=== PATIENT | female | born 1980 | race Caucasian/White ===

== ENCOUNTER → 2016-12-11 | Day surgery (SDC) | payer BC ==
[~2016-12-11] MED LIST: ALBU8I INH; DOCQ100C2 PO; DULO20 PO; FERR140T PO; LACTATED RINGER'S 1,000 ML BAG IV ONE; LAMO150 PO; ONABOTULINUMTOXINA INJ 100 UNITS/VIAL ONE; PROPOFOL 200 MG/20 ML AMP IV ONE; SODIUM CHLORIDE 0.9% INJ 10 ML ONE; SYNT75TA PO; TRAZ50TA4 PO
--- NOTE | 2016-12-11 10:12 | GIPROC ---
[facility] [address] [facility], [id number] EGD PROCEDURE REPORT EXAM DATE: 12/11/2016 PATIENT NAME: Ani Olvera MR #: [id number] BIRTHDATE: 1980 ATTENDING: Robles Mancia MD ORDER #: [id number] LIBRARY AIDE: Gerda Rossi RN STATUS: outpatient INDICATIONS: The patient is a 36 yr old female here for an EGD due to gastroparesis PROCEDURE PERFORMED: EGD w/ directed submucosal injection(s), any substance MEDICATIONS: None, Per Anesthesia, None, and Per Anesthesia. TOPICAL ANESTHETIC: CONSENT: The patient understands the risks and benefits of the procedure and understands that these risks include, but are not limited to: sedation, allergic reaction, infection, perforation and/or bleeding. Alternative means of evaluation and treatment include, among others: physical exam, x-rays, and/or surgical intervention. The patient elects to proceed with this endoscopic procedure. medical equipment was checked for proper function. Hand hygiene and appropriate measures for infection prevention was taken. After the risks, benefits and alternatives of the procedure were thoroughly explained, Informed consent was verified, confirmed and timeout was successfully executed by the treatment team. The patient was anesthetized with topical anesthesia and the EG-[id number] ([id number]) endoscope was introduced through the mouth and advanced to the second portion of the duodenum. Retroflexed views revealed no abnormalities The gastroscope was then slowly withdrawn and removed. ESOPHAGUS: The mucosa of the esophagus appeared normal. STOMACH: A medium sized hiatal hernia was noted. The mucosa of the stomach appeared normal. 100units of botox injected into the peripyloric area. DUODENUM: A medium sized diverticulum was found in the 2nd part of the duodenum. ADVERSE EVENTS: There were no complications. IMPRESSIONS: 1. The esophagus appeared normal 2. Medium sized hiatal hernia 3. The mucosa of the stomach appeared normal 4. Diverticulum was found in the 2nd part of the duodenum 5. Retroflexed views revealed no abnormalities RECOMMENDATIONS: Follow-up: GI clinic 4 week(s) PATIENT CONDITION: stable DISPOSITION: Home REPEAT EXAM: Robles Mancia MD eSigned: Robles Mancia MD 12/11/2016 10:11 AM cc: Fauzia Martinez PATIENT NAME: Ani Olvera MR#: [id number]
== END | disposition home or self-care (01) ==
LOC: ESDC 08:26
PROVIDERS: ATTEND Internal Medicine Gastroenterology
DX: K31.84 Gastroparesis (principal); K44.9 Diaphragmatic hernia without obstruction or gangrene
CPT/HCPCS: 00740; 43236; J0585; J3010; J7120